=== PATIENT | male | born 1980 | race Caucasian/White ===

== ENCOUNTER 2023-08-03 15:44 | Emergency (ER) | payer OTHER ==
[~2023-08-03] VITALS: Ht 172.7 cm; Wt 80.0 kg
[~2023-08-03 15:44] MED LIST: HUMIRA40 MG/0.1 SQ; NIACIN 100100 MG/TAB PO; ZOCOR5 MG PO; ZOFRAN 4MG T4 MG/TAB PO; ZYLOPRIM 100MG100 MG PO
[2023-08-03 16:07] VITALS: TEMP 98.2
[2023-08-03] MEDS ORDERED: NS 1,000 ML IV ONE ×2 (16:45→18:15)
[2023-08-03 16:56] LABS: BASO % 0.2 % (0.0-2.0); EOS # 0.1 K/mm3 (0.0-0.7); EOS % 0.4 % (0.0-4.0); GRAN # 11.8 K/mm3 (1.4-6.5); GRAN % 89.4 % (42.2-75.2); HEMATOCRIT 49.8 % (42.0-52.0); HEMOGLOBIN 16.9 g/dl (13.5-18.0); LYMPH # 0.5 K/mm3 (1.2-3.4); LYMPH % 3.4 % (20.0-51.0); MEAN CELL VOLUME 87 fl (80.0-100.0); MEAN CORPUSCULAR HEMOGLOBIN 30 pg (27-31); MEAN CORPUSCULAR HGB CONC 34 g/dl (33.0-37.0); MEAN PLATELET VOLUME 9.1 fl (7.4-10.4); MONO # 0.8 K/mm3 (0.1-0.6); MONO % 6.4 % (1.7-9.3); PLATELET COUNT 285 K/mm3 (130-400); RED BLOOD COUNT 5.73 M/mm3 (4.20-5.60); REDCELL DISTRIBUTION WIDTH-CV 13.2 % (11.5-14.5)
[2023-08-03 17:20] LABS: ALBUMIN 4.4 g/dL (3.5-5.0); BILIRUBIN,TOTAL 0.4 mg/dL (0.2-1.2); CALCIUM 10.2 mg/dL (8.4-10.2); CREATININE, serum 1.24 mg/dL (0.72-1.25); POTASSIUM 4.2 mEq/L (3.5-4.5); TOTAL PROTEIN 8.4 g/dl (6.2-8.1)
[2023-08-03] MEDS ORDERED: droPERidol 2.5 MG/ML 2 ML VIAL IV ONE (18:30)
[2023-08-03 20:33] VITALS: BP 128/77; PULSE 90
== END 2023-08-03 20:33 | disposition home or self-care (01) ==
LOC: COL.ER 15:44
PROVIDERS: Personal Emergency Response Attendant
DX: J06.9 Acute upper respiratory infection, unspecified (principal); R55 Syncope and collapse; R11.10 Vomiting, unspecified
CPT/HCPCS: J1790; J7030